=== PATIENT | male | born 1975 | race African-American/Black ===

== ENCOUNTER 2021-03-23 00:19 | Inpatient (IN) | payer SELFPAY ==
[~2021-03-23] VITALS: Ht 167.7 cm; Wt 107.4 kg
--- NOTE | 2021-03-23 00:46 | ED Syncope ---
General Chief Complaint: Neurological Problems Stated Complaint: SEIZURE Source of Information: Patient Exam Limitations: No Limitations History of Present Illness Date Seen by Provider: Mar 23, 2021 Time Seen by Provider: 00:15 Initial Comments Patient presents to the ER by EMS from the local [facility] with chief complaint of a witnessed syncopal episode with seizure-like activity. Patient is postictal to about the time he arrives here. He gives his name and knows that he where he is and states that he has no history of seizures just asthma. No shortness of air or chest pain nausea or recollection of what happened. He says he was here with a friend from [facility]. He gave EMS an address in [place]. No fevers chills nausea vomiting diarrhea constipation or recent illness or sick contacts. EMS reports blood sugar over 300. Patient recalls he does have hypertension and takes 10 mg lisinopril but he has been off it for the past several days. 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 Allergies and Home Medications Allergies Coded Allergies: No Allergy Information Available (Unverified , 03/23/21) No Known Drug Allergies (Unverified , 03/23/21) Patient Home Medication List Home Medication List Reviewed: Yes Review of Systems Constitutional: No chills, No fever EENTM: No ear discharge, No ear pain Respiratory: No cough, No short of breath Cardiovascular: No chest pain, No edema Gastrointestinal: No abdominal pain, No nausea, No vomiting Genitourinary: No discharge, No dysuria Musculoskeletal: No back pain, No joint pain Psychiatric/Neurological: Denies Anxiety, Denies Depressed All Other Systems Reviewed Negative Unless Noted: Yes Past Covhgxf-Ztvuhf-Mybuvu Hx Patient Social History Tobacco Use?: No Use of E-Cig and/or Vaping dev: No Substance use?: No Physical Exam Vital Signs Vital Signs - First Documented 03/23/21 00:19 Temp 36.6 Pulse 116 Resp 14 B/P (MAP) 226/114 (151) O2 Delivery Room Air Capillary Refill : Height, Weight, BMI Height: '" Weight: lbs. oz. kg; BMI Method: General Appearance: No Apparent Distress, WD/WN HEENT: PERRL/EOMI, Pharynx Normal, Moist Mucous Membranes Neck: Full Range of Motion, Normal Inspection Cardiovascular: Regular Rate, Rhythm, No Edema, Normal Peripheral Pulses Respiratory: Lungs Clear, Normal Breath Sounds, No Accessory Muscle Use, No Respiratory Distress Gastrointestinal: Normal Bowel Sounds, Non Tender, Soft Extremities: Normal Capillary Refill, Normal Inspection, No Pedal Edema Neurologic/Psychiatric: Alert, Normal Mood/Affect, glass technologist II-XII Norm as Tested, Other (Oriented to person and place but not time or situation yet. GCS 15) Cranial Nerves: Normal Hearing, Normal Speech, PERRL Motor/Sensory: No Motor Deficit, No Sensory Deficit Skin: Normal Color, Warm/Dry Progress/Results/Core Measures Results/Orders Lab Results Laboratory Tests Test 03/23/21 00:24 03/23/21 00:28 Range/Units Urine Color YELLOW Urine Clarity CLEAR Urine pH 6.0 5-9 Urine Specific [place] 1.020 1.016-1.022 Urine Protein 2+ H NEGATIVE Urine Glucose (UA) 3+ H NEGATIVE Urine Ketones NEGATIVE NEGATIVE Urine Nitrite NEGATIVE NEGATIVE Urine Bilirubin NEGATIVE NEGATIVE Urine Urobilinogen 0.2 < = 1.0 MG/DL Urine Leukocyte Esterase NEGATIVE NEGATIVE Urine RBC (Auto) 2+ H NEGATIVE Urine RBC 5-10 H /HPF Urine WBC 0-2 /HPF Urine Crystals NONE /LPF Urine Bacteria TRACE /HPF Urine Casts PRESENT /LPF Urine Hyaline Casts 0-2 H /LPF Urine Mucus NEGATIVE /LPF Urine Culture Indicated NO Urine Opiates Screen NEGATIVE NEGATIVE Urine Oxycodone Screen NEGATIVE NEGATIVE Urine Methadone Screen NEGATIVE NEGATIVE Urine Propoxyphene Screen NEGATIVE NEGATIVE Urine Barbiturates Screen NEGATIVE NEGATIVE Ur Tricyclic Antidepressants Screen NEGATIVE NEGATIVE Urine Phencyclidine Screen NEGATIVE NEGATIVE Urine Amphetamines Screen NEGATIVE NEGATIVE Urine Methamphetamines Screen NEGATIVE NEGATIVE Urine Benzodiazepines Screen NEGATIVE NEGATIVE Urine Cocaine Screen NEGATIVE NEGATIVE Urine Cannabinoids Screen NEGATIVE NEGATIVE White Blood Count 14.5 H 4.3-11.0 10^3/uL Red Blood Count 5.80 H 4.30-5.52 10^6/uL Hemoglobin 16.4 13.3-17.7 g/dL Hematocrit 50 40-54 % Mean Corpuscular Volume 86 80-99 fL Mean Corpuscular Hemoglobin 28 25-34 pg Mean Corpuscular Hemoglobin Concent 33 32-36 g/dL Red Cell Distribution Width 12.7 10.0-14.5 % Platelet Count 483 H 130-400 10^3/uL Mean Platelet Volume 10.7 9.0-12.2 fL Immature Granulocyte % (Auto) 1 % Neutrophils (%) (Auto) 31 L 42-75 % Lymphocytes (%) (Auto) 56 H 12-44 % Monocytes (%) (Auto) 10 0-12 % Eosinophils (%) (Auto) 3 0-10 % Basophils (%) (Auto) 1 0-10 % Neutrophils # (Auto) 4.5 1.8-7.8 10^3/uL Lymphocytes # (Auto) 8.1 H 1.0-4.0 10^3/uL Monocytes # (Auto) 1.4 H 0.0-1.0 10^3/uL Eosinophils # (Auto) 0.4 H 0.0-0.3 10^3/uL Basophils # (Auto) 0.1 0.0-0.1 10^3/uL Immature Granulocyte # (Auto) 0.1 0.0-0.1 10^3/uL Neutrophils % (Manual) 26 % Lymphocytes % (Manual) 59 % Monocytes % (Manual) 11 % Eosinophils % (Manual) 4 % Band Neutrophils % Sodium Level 138 135-145 MMOL/L Potassium Level 3.3 L 3.6-5.0 MMOL/L Chloride Level 99 98-107 MMOL/L Carbon Dioxide Level 13 L 21-32 MMOL/L Anion Gap 26 H 5-14 MMOL/L Blood Urea Nitrogen 11 7-18 MG/DL Creatinine 1.82 H 0.60-1.30 MG/DL Estimat Glomerular Filtration Rate 49 BUN/Creatinine Ratio 6 Glucose Level 524 *H 70-105 MG/DL Calcium Level 9.3 8.5-10.1 MG/DL Corrected Calcium 9.5 8.5-10.1 MG/DL Magnesium Level 1.9 1.6-2.4 MG/DL Total Bilirubin 0.6 0.1-1.0 MG/DL Aspartate Amino Transf (AST/SGOT) 13 5-34 U/L Alanine Aminotransferase (ALT/SGPT) 17 0-55 U/L Alkaline Phosphatase 91 40-136 U/L Troponin I < 0.028 <0.028 NG/ML C-Reactive Protein High Sensitivity 0.80 H 0.00-0.50 MG/DL B-Type Natriuretic Peptide 21.8 <100.0 PG/ML Total Protein 8.2 6.4-8.2 GM/DL Albumin 3.8 3.2-4.5 GM/DL Beta-Hydroxybutyrate (Chem panel) 0.11 0.00-0.27 MMOL/L Serum Alcohol < 10 <10 MG/DL My Orders Orders - QUINTON KOLB Ct Head/Cervical Spine Wo (03/23/21 00:24) Ed Iv/Invasive Line Start (03/23/21 00:24) Cbc With Automated Diff (03/23/21 00:24) Comprehensive Metabolic Panel (03/23/21:24) Hs C Reactive Protein (03/23/21:24) Chest 1 View, Ap/Pa Only (03/23/21 00:24) Continuous Ekg Monitoring (03/23/21 00:24) Ekg Tracing (03/23/21:24) Alcohol (03/23/21:24) Ua Culture If Indicated (03/23/21 00:24) Drug Screen Stat (Urine) (03/23/21 00:24) BNP (03/23/21 00:55) Troponin I (03/23/21 00:55) Insulin (Regular) Human (Novolin R (Per (03/23/21 01:00) Ed Iv/Invasive Line Start (03/23/21 00:58) Ns Iv 1000 Ml (Sodium Chloride 0.9%) (03/23/21 01:00) Magnesium (03/23/21 00:59) Manual Differential (03/23/21 00:28) Beta Hydroxybutyrate (03/23/21 01:16) Insulin (Regular) Human (Novolin R (Per (03/23/21 01:30) Potassium Cl 10meq/50ml Ivpb (Kcl 10 Meq (03/23/21 01:30) Labetalol Injection (Normodyne Injection (03/23/21 01:30) Medications Given in ED Vital Signs/I&O 03/23/21 00:19 Temp 36.6 Pulse 116 Resp 14 B/P (MAP) 226/114 (151) O2 Delivery Room Air Progress Progress Note #1: Time: 00:53 Progress Note Witnessed syncopal episode. Patient presents with severe hypertension 230/130. Is not having any chest pain. Stroke, hypertensive emergency, vasovagal, seizure, dysrhythmia, intoxication are all possibilities. We will get some labs, urine and CT of the head and C-spine. Unknown if he fell or struck anything but he is not having any pain now. 2 L of fluid. We will address his hyperglycemia with regular insulin Progress Note #2: Time: 01:26 Progress Note Blood sugar over 500 and an elevated anion gap. Beta hydroxybutyrate ordered. 10 of IV insulin and started some potassium. Concern for DKA. Blood pressure has persisted 216/118 so 20 of labetalol for potential hypertensive encephalopathy. Patient still having some short-term memory lapse and cannot member what town he is in but he thinks maybe he is in [facility]. Initial ECG Impression Date: Mar 23, 2021 Initial ECG Impression Time: 01:05 Initial ECG Rate: 99 Initial ECG Rhythm: Normal Sinus Initial ECG Intervals: Normal Initial ECG Impression: Normal Initial ECG Comparisson: No Previous ECG Available Comment Normal sinus rhythm with some nonspecific half of a block of ST elevation in lead V2 with depression in leads aVF, III. Diagnostic Imaging Diagonstic Imaging: Xray Plain Films/CT/US/NM/MRI: chest Comments No acute cardiopulmonary process. [facility]. [place], [place] NAME: JOHN WHITE [facility] REC#: [id number] PT STATUS: ADM IN : 1975 PHYSICIAN: QUINTON KOLB MD ADMIT DATE: 03/23/21/ICU Signed Date of Exam:03/23/21 CHEST 1 VIEW, AP/PA ONLY Indication: Follow-up syncope. Comparison: None. Discussion: Single portable upright view of the chest was obtained. Normal heart size. No consolidation, pleural fluid, or pneumothorax. No osseous abnormality. Impression: 1. Negative portable chest. Dictated by: Dictated on workstation # [id number] Dict: 03/23/21 0706 Trans: 03/23/21 1534 [facility] [id number] Interpreted by: VENKAT CRUZ MD Electronically signed by: VENKAT CRUZ MD 03/23/21 1534 Reviewed: Reviewed by Me Diagonstic Imaging: CT Plain Films/CT/US/NM/MRI: c-spine, head Comments No acute intracranial hemorrhage, mass-effect, midline shift or tumor. No calvarial fracture. No C-spine malalignment or fracture. Osteoarthritis noted. [facility]. [place], [place] NAME: JOHN WHITE [facility] REC#: [id number] PT STATUS: ADM IN : 1975 PHYSICIAN: QUINTON KOLB MD ADMIT DATE: 03/23/21/ICU Signed Date of Exam:03/23/21 CT HEAD/CERVICAL SPINE WO PROCEDURE: CT head and CT cervical spine without contrast. TECHNIQUE: Multiple contiguous axial images were obtained through the brain and cervical spine without the use of intravenous contrast. Sagittal and coronal reformations through the cervical spine were then performed. Auto Exposure Controls were utilized during the CT exam to meet ALARA standards for radiation dose reduction. Indication: Head and neck pain after seizure. Comparison: None. Discussion: Head: No acute intracranial hemorrhage, mass, midline shift, hydrocephalus. The ventricles and sulci are normal size and configuration for age. Mild mucosal thickening within the sinuses. The orbits, mastoid air cells, and calvarium are unremarkable. Cervical spine: Advanced degenerative disc disease noted at C5-C6. Facet arthropathy is present. There is straightening of the normal cervical lordosis which is typically seen with muscle spasm. No acute fracture or subluxation otherwise. Paraspinal soft tissues are unremarkable. Impression: 1. No acute intracranial abnormality identified. 2. Degenerative changes noted within the cervical spine. No acute fracture. 3. Agree with the preliminary report. Dictated by: Dictated on workstation # [id number] Dict: 03/23/21619 Trans: 03/23/21 1525 [facility] [id number] Interpreted by: VENKAT CRUZ MD Electronically signed by: VENKAT CRUZ MD 03/23/21 1525 Reviewed: [facility] Reviewed by Me Departure Communication (Admissions) Time/Spoke to Admitting Phy: 02:20 Discussed the case with Dr. Clifford and she would like a lactate and agrees to admit the patient on insulin drip to the ICU. Impression Primary Impression: Hypertensive encephalopathy Additional Impression: Type 2 diabetes mellitus with hyperosmolar hyperglycemic state (HHS) Disposition: ADMITTED INPATIENT Condition: Stable Admissions Decision to Admit Reason: Admit from ER (General) Decision to Admit/Date: Mar 23, 2021 Time/Decision to Admit Time: 01:45 Departure-Patient Inst. Referrals: NO,LOCAL PHYSICIAN (PCP/Family) Primary Care Physician QUINTON KOLB Mar 23, 2021 00:46
[2021-03-23 00:55] LABS: ALBUMIN 3.8 GM/DL (3.2-4.5); CHLORIDE 99 MMOL/L (98-107); POTASSIUM 3.3 MMOL/L (3.6-5.0); SODIUM 138 MMOL/L (135-145)
[2021-03-23 00:56] LABS: CALCIUM 9.3 MG/DL (8.5-10.1)
[2021-03-23 00:58] LABS: TOTAL PROTEIN 8.2 GM/DL (6.4-8.2)
[2021-03-23] MEDS ORDERED: inSUlin (REGULAR) HUMAN 1 UNIT/0.01 ML (CHARGE PER UNIT) SC ONE (01:00)
[2021-03-23] MEDS ORDERED: NS IV 1000 ML 1,000 ML IV ONE (01:00)
[2021-03-23 01:01] LABS: ALKALINE PHOSPHATASE 91 U/L (40-136); BASOPHILS # (AUTO) 0.1 10^3/uL (0.0-0.1); BASOPHILS % (AUTO) 1 % (0-10); BILIRUBIN,TOTAL 0.6 MG/DL (0.1-1.0); CARBON DIOXIDE 13 MMOL/L (21-32); EOSINOPHILS # (AUTO) 0.4 10^3/uL (0.0-0.3); EOSINOPHILS % (AUTO) 3 % (0-10); HEMATOCRIT 50 % (40-54); HEMOGLOBIN 16.4 g/dL (13.3-17.7); LYMPHOCYTES # (AUTO) 8.1 10^3/uL (1.0-4.0); LYMPHOCYTES % (AUTO) 56 % (12-44); MEAN CORPUSCULAR HEMOGLOBIN 28 pg (25-34); MEAN CORPUSCULAR HGB CONC 33 g/dL (32-36); MEAN CORPUSCULAR VOLUME 86 fL (80-99); MEAN PLATELET VOLUME 10.7 fL (9.0-12.2); MONOCYTES # (AUTO) 1.4 10^3/uL (0.0-1.0); MONOCYTES % (AUTO) 10 % (0-12); NEUTROPHILS # (AUTO) 4.5 10^3/uL (1.8-7.8); NEUTROPHILS % (AUTO) 31 % (42-75); PLATELET COUNT 483 10^3/uL (130-400); WHITE BLOOD COUNT 14.5 10^3/uL (4.3-11.0)
[2021-03-23 01:02] LABS: CREATININE SERUM 1.82 MG/DL (0.60-1.30); GFR ESTIMATED 49
[2021-03-23 01:03] LABS: BUN/CREATININE RATIO 6
[2021-03-23 01:04] LABS: ALANINE AMINOTRANSFERASE 17 U/L (0-55)
[2021-03-23 01:16] LABS: GLUCOSE 524 MG/DL (70-105)
[2021-03-23 01:19] LABS: MAGNESIUM 1.9 MG/DL (1.6-2.4)
[2021-03-23 01:30] LABS: BILIRUBIN,URINE NEGATIVE (NEGATIVE); CLARITY,URINE CLEAR; COLOR,URINE YELLOW; GLUCOSE, URINE (UA) 3+ (NEGATIVE); KETONES,URINE NEGATIVE (NEGATIVE); LEUKOCYTE ESTERASE ,URINE NEGATIVE (NEGATIVE); NITRITE,URINE NEGATIVE (NEGATIVE); PROTEIN,URINE 2+ (NEGATIVE)
[2021-03-23] MEDS ORDERED: LABETALOL HCL 20 MG/4 ML VIAL IV ONE (01:30)
[2021-03-23] MEDS ORDERED: inSUlin (REGULAR) HUMAN 1 UNIT/0.01 ML (CHARGE PER UNIT) IV ONE (01:30)
[2021-03-23] MEDS ORDERED: POTASSIUM CL 10MEQ/50ML IVPB 50 ML IV ONE (01:30)
[2021-03-23 01:39] LABS: EOSINOPHILS % (MANUAL) 4 %; LYMPHOCYTES % (MANUAL) 59 %; MONOCYTES % (MANUAL) 11 %; NEUTROPHILS % (MANUAL) 26 %
[2021-03-23 01:42] LABS: BACTERIA,URINE TRACE /HPF; HYALINE CASTS, URINE 0-2 /LPF; WBC,URINE 0-2 /HPF
[2021-03-23 02:13] LABS: AMPHETAMINE SCREEN, URINE NEGATIVE (NEGATIVE); BARBITURATE SCREEN URINE NEGATIVE (NEGATIVE); BENZODIAZEPINES SCREEN URINE NEGATIVE (NEGATIVE); CANNABINOID SCREEN, URINE NEGATIVE (NEGATIVE); COCAINE SCREEN URINE NEGATIVE (NEGATIVE); METHADONE STAT NEGATIVE (NEGATIVE); METHAMPHETAMINE SCREEN URINE S NEGATIVE (NEGATIVE); OPIATE SCREEN URINE NEGATIVE (NEGATIVE); OXYCODONE STAT NEGATIVE (NEGATIVE); PROPOXYPHENE STAT NEGATIVE (NEGATIVE); TRICYCLIC ANTIDEPRESSANTS SCRE NEGATIVE (NEGATIVE)
--- NOTE | 2021-03-23 03:32 | Tele-ICU Consult ---
History of Present Illness History of Present Illness Date Seen by Provider: Mar 23, 2021 Time Seen by Provider: 03:26 Date of Admission History of Present Illness Patient presents to the ER by EMS from the local [facility] with chief complaint of a witnessed syncopal episode with seizure-like activity. Patient is postictal to about the time he arrives here. He gives his name and knows that he where he is and states that he has no history of seizures just asthma. No shortness of air or chest pain nausea or recollection of what happened. He says he was here with a friend from [facility]. He gave EMS an address in [place]. No fevers chills nausea vomiting diarrhea constipation or recent illness or sick contacts. EMS reports blood sugar over 300. Patient recalls he does have hypertension and takes 10 mg lisinopril but he has been off it for the past several days. 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 In ED he was found to be hyperglycemic: insulin drip was started; He was found to have high AG metabolic acidosis: lactic acid pending/ etoh <10, BHB normal. Allergies and Home Medications Allergies Coded Allergies: No Allergy Information Available (Unverified , 03/23/21) No Known Drug Allergies (Unverified , 03/23/21) Past Medical/Social/Family Hx Patient Social History Tobacco Use?: No Smoking Status: Current Everyday Smoker Use of E-Cig and/or Vaping dev: No Substance use?: No Alcohol Use?: No Current Status Primary Language: Pakistani Preferred Spoken Language: Pakistani Past Medical History asthma, DM, HTN Review of Systems Constitutional: no symptoms reported, other (generalized pain) Respiratory: no symptoms reported Sepsis Event Evaluation Height, Weight, BMI Height: '" Weight: lbs. oz. kg; 29.00 BMI Method: Exam Exam Patient acknowledged, consented, and participated in this virtual visit which was conducted using real time audio/video Vital Signs Date Time Temp Pulse Resp B/P (MAP) Pulse Ox O2 Delivery O2 Flow Rate FiO2 03/23/21 00:19 36.6 116 14 226/114 (151) Room Air I & O 03/23/21 07:00 Intake Total 1250 ml Balance 1250 ml Height & Weight Height: '" Weight: lbs. oz. kg; 29.00 BMI Method: General Appearance: No Apparent Distress, WD/WN HEENT: PERRL/EOMI, Pharynx Normal, Moist Mucous Membranes Neck: Full Range of Motion, Normal Inspection Respiratory: Lungs Clear, Normal Breath Sounds, No Accessory Muscle Use, No Respiratory Distress Cardiovascular: Regular Rate, Rhythm, No Edema, Normal Peripheral Pulses Capillary Refill: Less Than 3 Seconds Extremity: Normal Capillary Refill, Normal Inspection, No Pedal Edema Neurologic/Psychiatric: Alert, Normal Mood/Affect, product safety manager II-XII Norm as Tested, Other (Oriented to person and place but not time or situation yet. GCS 15) Skin: Normal Color, Warm/Dry Results Lab Laboratory Tests 03/23/21 00:28 Assessment/Plan Assessment/Plan 1. AG metabolic acidosis -work up in progress with lactic acid/ abg pending -bmp repeated -we will also ask for osmolality in order to establish a potential osmolar gap / ag metabolic acidosis tylenol and asa level ordered -lactic acidosis my be present and related to seizures 2. Hyperglicemia on Insulin drip 3. Seizures new onset/ related to hyperglycemia mri/ eeg pt was visualized/ labs+ cxray reviewed dw FRANCIA Arboleda MD Mar 23, 2021 03:32
[2021-03-23] MEDS ORDERED: MAGNESIUM 1 GM/100 ML IVPB 100 ML IV ONE (03:45)
[2021-03-23] MEDS ORDERED: ONDANSETRON 4 MG/2 ML (SDV) Z0FRAN IVP PRN (03:45)
[2021-03-23] MEDS ORDERED: LORazepam INJ 2 MG/ML (ATIVAN) VIAL IVP PRN (03:45)
[2021-03-23] MEDS ORDERED: NS IV 1000 ML 1,000 ML IV SCH (03:45)
[2021-03-23] MEDS ORDERED: D5 1/2 NS 1000 ML IV SOLUTION 1,000 ML IV SCH ×2 (03:45→14:45)
[2021-03-23 04:02] VITALS: BP 226/114
[2021-03-23] MEDS ORDERED: RT-ALBUTEROL SULF 2.5 MG/3 ML PRE-MIX VIAL INH PRN (04:15)
[2021-03-23] MEDS: 1/2 NS IV SOLUTION 1,000 ML IV SCH ×2 (05:13→13:48)
[2021-03-23] MEDS: POTASSIUM CL 10MEQ/50ML IVPB 50 ML IV SCH ×2 (05:15→07:32)
[2021-03-23 05:52] LABS: CHLORIDE 104 MMOL/L (98-107); POTASSIUM 3.4 MMOL/L (3.6-5.0); SODIUM 136 MMOL/L (135-145)
[2021-03-23 05:54] LABS: CALCIUM 8.3 MG/DL (8.5-10.1); GLUCOSE 352 MG/DL (70-105)
[2021-03-23 05:55] LABS: CARBON DIOXIDE 22 MMOL/L (21-32)
[2021-03-23 05:58] LABS: CREATININE SERUM 1.04 MG/DL (0.60-1.30); GFR ESTIMATED > 60
[2021-03-23 05:59] LABS: BUN/CREATININE RATIO 12
[2021-03-23 06:00] LABS: SALICYLATE < 5.0 MG/DL (5.0-20.0)
[2021-03-23 06:01] LABS: CREATINE KINASE 299 U/L (30-200)
[2021-03-23 06:18] LABS: ACETAMINOPHEN < 10 UG/ML (10-30)
--- NOTE | 2021-03-23 06:26 | Diagnostic Imaging Report ---
PROCEDURE: CT head and CT cervical spine without contrast. TECHNIQUE: Multiple contiguous axial images were obtained through the brain and cervical spine without the use of intravenous contrast. Sagittal and coronal reformations through the cervical spine were then performed. Auto Exposure Controls were utilized during the CT exam to meet ALARA standards for radiation dose reduction. Indication: Head and neck pain after seizure. Comparison: None. Discussion: Head: No acute intracranial hemorrhage, mass, midline shift, hydrocephalus. The ventricles and sulci are normal size and configuration for age. Mild mucosal thickening within the sinuses. The orbits, mastoid air cells, and calvarium are unremarkable. Cervical spine: Advanced degenerative disc disease noted at C5-C6. Facet arthropathy is present. There is straightening of the normal cervical lordosis which is typically seen with muscle spasm. No acute fracture or subluxation otherwise. Paraspinal soft tissues are unremarkable. Impression: 1. No acute intracranial abnormality identified. 2. Degenerative changes noted within the cervical spine. No acute fracture. 3. Agree with the preliminary report. Dictated by: Dictated on workstation # [id number]
--- NOTE | 2021-03-23 07:09 | Diagnostic Imaging Report ---
Indication: Follow-up syncope. Comparison: None. Discussion: Single portable upright view of the chest was obtained. Normal heart size. No consolidation, pleural fluid, or pneumothorax. No osseous abnormality. Impression: 1. Negative portable chest. Dictated by: Dictated on workstation # [id number]
[2021-03-23 08:24] LABS: BUN/CREATININE RATIO 11; CARBON DIOXIDE 22 MMOL/L (21-32); CHLORIDE 106 MMOL/L (98-107); CREATININE SERUM 0.88 MG/DL (0.60-1.30); GFR ESTIMATED > 60; GLUCOSE 250 MG/DL (70-105); POTASSIUM 3.3 MMOL/L (3.6-5.0); SODIUM 137 MMOL/L (135-145)
--- NOTE | 2021-03-23 08:39 | Tele-ICU Progress Note ---
Progress Note video rounds completed 45 y/o admitted last night [place] in a casino and having a syncopal episode and possible seizure Was found to have elevated AG met acidosis and hyperglycemic Tox screen was negative THis AM PE: standing at bedside to void Pulse: 106 BP: 187/109 Sat 98% Labs: WBC 14.5 Hgb 16 K 3.3 Glu: 20 BUN 9 creat 0.88 Urine tox: negative IMP: HTN on lisinopril normally K low, being replaced Hyperglycemia: on insulin will add lovenox for DVT px No further seizure activity, work up pending Focused Exam Lactate Level 03/23/21 02:42: Lactic Acid Level 2.81*H 03/23/21 05:25: Lactic Acid Level 1.20 Height, Weight, BMI Height: '" Weight: lbs. oz. kg; 38.18 BMI Method: Lactic Acid Level Laboratory Tests Test 03/23/21 05:25 Lactic Acid Level 1.20 MMOL/L (0.50-2.00) TEO HERNANDEZ MD Mar 23, 2021 08:39
[2021-03-23] MEDS ORDERED: lisINopril 10 MG (PRINIVIL) TABLET PO ONE (08:45)
[2021-03-23] MEDS ORDERED: KCL 20 MEQ TAB (K-DUR) PO NR ×2 (08:45→11:00)
[2021-03-23] MEDS ORDERED: lisINopril 10 MG (PRINIVIL) TABLET PO NR (08:45)
[2021-03-23] MEDS: cloNIDine 0.1 MG (CATAPRES) TAB PO SCH ×2 (08:50→21:26)
[2021-03-23] MEDS: ENOXAPARIN 40 MG/0.4 ML (LOVENOX) SYR SC SCH (08:51)
--- NOTE | 2021-03-23 09:04 | History & Physical-Hospitalist ---
History of Present Illness HPI/Chief Complaint Pt is a 45yoAAM who presented to ER due to witnessed seizure like activity. [place] and the last thing he remembers is that he was winning but then he passed out. Bystanders noticed seizure like activity and called EMS. He does not recall any of this. He does state he is feeling better than he did last night. He has no known history of DMII. He was found to be profoundly hyperglycemic with blood sugars in the 500s. He was admitted to the ICU for insulin gtt. He was also found to have a high anion gap metabolic acidosis. Source: patient Date Seen 03/23/21 Time Seen by a Provider: 08:50 Attending Physician Taina Collins MD PCP No,Local Physician Referring Physician Date of Admission Mar 23, 2021 at 01:50 Home Medications & Allergies Home Medications Reviewed patient Home Medication Reconciliation performed by pharmacy medication reconciliations exhaust emissions automotive technician and/or nursing. Patients Allergies have been reviewed. 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) Tobacco Use?: Yes Tobacco type used: Cigarettes Smoking Status: Current Everyday Smoker Use of E-Cig and/or Vaping dev: No Substance use?: No Alcohol Use?: No Pt feels they are or have been: No Immunizations Up To Date First/Initial COVID19 Vaccinat: Not yet, interested in getting it Current Status Advance Directives: No Communicates: Verbally Primary Language: Grenadian Preferred Spoken Language: Grenadian Is interpretation needed?: No Past Medical History Hypertension asthma, DM, HTN Family Medical History Reviewed Nursing Family Hx No Pertinent Family Hx Review of Systems Constitutional: No chills, No fever EENTM: no symptoms reported Respiratory: No phlegm, No short of breath Cardiovascular: No chest pain, No palpitations Gastrointestinal: No abdominal pain, No constipation, No diarrhea, No nausea, No vomiting Genitourinary: no symptoms reported Musculoskeletal: no symptoms reported Skin: no symptoms reported Psychiatric/Neurological: See HPI Physical Exam Physical Exam Vital Signs Vital Signs - First Documented 03/23/21 03/23/21 00:19 04:02 Temp 36.6 Pulse 116 Resp 14 B/P (MAP) 226/114 (151) Pulse Ox 96 O2 Delivery Room Air FiO2 21 Capillary Refill : Less Than 3 Seconds Height, Weight, BMI Height: '" Weight: lbs. oz. kg; 38.18 BMI Method: General Appearance: No Apparent Distress, WD/WN, Obese HEENT: PERRL/EOMI, Moist Mucous Membranes; No Scleral Icterus (L), No Scleral Icterus (R) Neck: Normal Inspection, Supple Respiratory: Lungs Clear, No Accessory Muscle Use, No Respiratory Distress Cardiovascular: Regular Rate, Rhythm, No Murmur Gastrointestinal: Normal Bowel Sounds, Non Tender, Soft Extremity: Normal Capillary Refill, No Calf Tenderness, No Pedal Edema Neurologic/Psychiatric: Alert, Oriented x3, Normal Mood/Affect Skin: Normal Color, Warm/Dry Results Results/Procedures Labs Laboratory Tests 03/23/21 00:28 03/23/21 05:25 03/23/21 08:00 Patient resulted labs reviewed. Imaging: Reviewed Imaging Report Imaging [facility] [place] NAME: JOHN [facility]ITE [facility] REC#: [id number] PT STATUS: ADM IN : 1975 PHYSICIAN: QUINTON KOLB MD ADMIT DATE: 03/23/21/ICU Draft Date of Exam:03/23/21 CT HEAD/CERVICAL SPINE WO PROCEDURE: CT head and CT cervical spine without contrast. TECHNIQUE: Multiple contiguous axial images were obtained through the brain and cervical spine without the use of intravenous contrast. Sagittal and coronal reformations through the cervical spine were then performed. Auto Exposure Controls were utilized during the CT exam to meet ALARA standards for radiation dose reduction. Indication: Head and neck pain after seizure. Comparison: None. Discussion: Head: No acute intracranial hemorrhage, mass, midline shift, hydrocephalus. The ventricles and sulci are normal size and configuration for age. Mild mucosal thickening within the sinuses. The orbits, mastoid air cells, and calvarium are unremarkable. Cervical spine: Advanced degenerative disc disease noted at C5-C6. Facet arthropathy is present. There is straightening of the normal cervical lordosis which is typically seen with muscle spasm. No acute fracture or subluxation otherwise. Paraspinal soft tissues are unremarkable. Impression: 1. No acute intracranial abnormality identified. 2. Degenerative changes noted within the cervical spine. No acute fracture. 3. Agree with the preliminary report. Dictated on workstation # [id number] Dict: 03/23/21619 Trans: 03/23/21624 RAYRAY [id number] Interpreted by: VENKAT CRUZ MD Electronically signed by: [facility]. [place], [place] NAME: JOHN WHITE [facility] REC#: [id number] PT STATUS: ADM IN : 1975 PHYSICIAN: QUINTON KOLB MD ADMIT DATE: 03/23/21/ICU Draft Date of Exam:03/23/21 CHEST 1 VIEW, AP/PA ONLY Indication: Follow-up syncope. Comparison: None. Discussion: Single portable upright view of the chest was obtained. Normal heart size. No consolidation, pleural fluid, or pneumothorax. No osseous abnormality. Impression: 1. Negative portable chest. Dictated on workstation # [id number] Dict: 03/23/21705 Trans: 03/23/21708 CHELSY [id number] Interpreted by: VENKAT CRUZ MD Electronically signed by: Assessment/Plan Admission Diagnosis HHS Admission Status: Inpatient Order (span 2 midnights) Reason for Inpatient Admission: see below Assessment and Plan HHS newly diagnosed DMII HAGMA Currently on insulin gtt a1c ordered DM education prior to DC BHB negative, not DKA Lactic elevated, HAGMA likely due to seizure as now resolved Alcohol, ASA, and tylenol negative as well osm pending Seizure like activity May be due to hyperglycemia Will need to avoid driving for the next 6 months HTN Resume home meds Diagnosis/Problems Diagnosis/Problems (1) Type 2 diabetes mellitus with hyperosmolar hyperglycemic state (HHS) Status: Acute (2) Hypertensive encephalopathy Status: Acute (3) Witnessed seizure-like activity (4) High anion gap metabolic acidosis TAINA COLLINS MD Mar 23, 2021 09:04
[2021-03-23] MEDS ORDERED: hydrALAZINE (APESOLINE) 20 MG/ML VIAL ONE (12:19)
[2021-03-23] MEDS: hydrALAZINE (APESOLINE) 20 MG/ML VIAL IV PRN ×2 (12:22→18:21)
[2021-03-23] MEDS: ACETAMINOPHEN 325 MG TABLET PO PRN ×2 (13:48→19:48)
[2021-03-23 14:30] LABS: BUN/CREATININE RATIO 11; CALCIUM 8.1 MG/DL (8.5-10.1); CARBON DIOXIDE 20 MMOL/L (21-32); CHLORIDE 109 MMOL/L (98-107); CREATININE SERUM 0.81 MG/DL (0.60-1.30); GFR ESTIMATED > 60; GLUCOSE 153 MG/DL (70-105); POTASSIUM 3.5 MMOL/L (3.6-5.0); SODIUM 138 MMOL/L (135-145)
[2021-03-23] MEDS: inSUlin ASPART (NovoLOG) 1 UNIT/0.01 ML (CHARGE PER UNIT) SC SCH ×2 (16:23→21:25)
[2021-03-23] MEDS ORDERED: inSUlin ASPART (NovoLOG) 1 UNIT/0.01 ML (CHARGE PER UNIT) SC SCH (18:00)
[2021-03-24 05:58] LABS: HEMATOCRIT 43 % (40-54); HEMOGLOBIN 14.3 g/dL (13.3-17.7); MEAN CORPUSCULAR HEMOGLOBIN 28 pg (25-34); MEAN CORPUSCULAR HGB CONC 34 g/dL (32-36); MEAN CORPUSCULAR VOLUME 84 fL (80-99); MEAN PLATELET VOLUME 10.2 fL (9.0-12.2); PLATELET COUNT 283 10^3/uL (130-400); WHITE BLOOD COUNT 8.1 10^3/uL (4.3-11.0)
[2021-03-24 06:11] LABS: CHLORIDE 106 MMOL/L (98-107); POTASSIUM 3.9 MMOL/L (3.6-5.0); SODIUM 137 MMOL/L (135-145)
[2021-03-24 06:12] LABS: CALCIUM 8.1 MG/DL (8.5-10.1)
[2021-03-24 06:13] LABS: GLUCOSE 255 MG/DL (70-105)
[2021-03-24 06:14] LABS: CARBON DIOXIDE 21 MMOL/L (21-32)
[2021-03-24 06:16] LABS: CREATININE SERUM 0.91 MG/DL (0.60-1.30); GFR ESTIMATED > 60
[2021-03-24 06:17] LABS: BUN/CREATININE RATIO 10
[2021-03-24 06:19] LABS: MAGNESIUM 1.7 MG/DL (1.6-2.4)
[2021-03-24] MEDS: inSUlin ASPART (NovoLOG) 1 UNIT/0.01 ML (CHARGE PER UNIT) SC SCH ×3 (06:44→21:34)
[2021-03-24] MEDS: MAGNESIUM 1 GM/100 ML IVPB 100 ML IV SCH (06:45)
[2021-03-24] MEDS: KCL 20 MEQ TAB (K-DUR) PO SCH (06:46)
[2021-03-24] MEDS: POTASSIUM CL 10MEQ/50ML IVPB 50 ML IV SCH (06:46)
[2021-03-24] MEDS: ACETAMINOPHEN 325 MG TABLET PO PRN (06:49)
[2021-03-24 08:02] LABS: CHOLESTEROL 182 MG/DL (< 200); HDL CHOLESTEROL 39 MG/DL (40-60); TRIGLYCERIDES 128 MG/DL (<150); VLDL CHOLESTEROL 26 MG/DL (5-40)
[2021-03-24] MEDS ORDERED: metFORMIN 500 MG (GLUCOPHAGE) TAB PO NR (08:30)
[2021-03-24] MEDS: cloNIDine 0.1 MG (CATAPRES) TAB PO SCH ×2 (08:45→21:31)
[2021-03-24] MEDS: lisINopril 40 MG (PRINIVIL) TABLET PO SCH (08:45)
[2021-03-24] MEDS: ENOXAPARIN 40 MG/0.4 ML (LOVENOX) SYR SC SCH (08:45)
--- NOTE | 2021-03-24 11:00 | Progress Note - Hospitalist ---
Subjective HPI/CC On Admission Date Seen by Provider: Mar 24, 2021 Time Seen by Provider: 09:15 Pt is a 45yoAAM who presented to ER due to witnessed seizure like activity. [place] the [place] thing he remembers is that he was winning but then he passed out. Bystanders noticed seizure like activity and called EMS. He does not recall any of this. He does state he is feeling better than he did last night. He has no known history of DMII. He was found to be profoundly hyperglycemic with blood sugars in the 500s. He was admitted to the ICU for insulin gtt. He was also found to have a high anion gap metabolic acidosis. Subjective/Events-last exam He is feeling better today. He has no complaints or concerns. Focused Exam Lactate Level 03/23/21 02:42: Lactic Acid Level 2.81*H 03/23/21 05:25: Lactic Acid Level 1.20 Objective Exam Vital Signs Vital Signs Date Time Temp Pulse Resp B/P (MAP) Pulse Ox O2 Delivery O2 Flow Rate FiO2 03/24/21 10:31 99 Room Air 03/24/21 08:05 36.6 81 16 167/79 (108) 03/23/21 04:02 21 Capillary Refill : Less Than 3 Seconds General Appearance: No Apparent Distress, Obese Respiratory: Lungs Clear, Normal Breath Sounds, No Respiratory Distress Cardiovascular: Regular Rate, Rhythm, No Edema, No Murmur Gastrointestinal: Normal Bowel Sounds, Non Tender, Soft Extremity: Normal Inspection, Non Tender, No Pedal Edema Neurologic/Psychiatric: Alert, Oriented x3, No Motor/Sensory Deficits, Normal Mood/Affect Skin: Normal Color, Warm/Dry Results/Procedures Lab Laboratory Tests 03/23/21 14:05 03/24/21 05:20 Patient resulted labs reviewed. Imaging: Reviewed Imaging Report Assessment/Plan Assessment and Plan Assess & Plan/Chief Complaint T2DM with HHS Metformin Increase Levemir Diabetes education Seizure-like activity Likely due to hyperglycemia Will likely need outpatient follow up with neurology HTN Lisinopril HCTZ Clonidine HLD Lipitor Obesity Metabolic syndrome Clinically significant, no acute management needs DVT prophylaxis: Lovenox Diagnosis/Problems Diagnosis/Problems (1) Type 2 diabetes mellitus with hyperosmolar hyperglycemic state (HHS) Status: Acute (2) Seizure-like activity Status: Acute (3) HTN (hypertension) Status: Acute (4) Obesity Status: Chronic (5) HLD (hyperlipidemia) Status: Acute (6) Metabolic syndrome Status: Acute CARLOS MCDERMOTT MD Mar 24, 2021 11:00
[2021-03-24] MEDS: LORazepam INJ 2 MG/ML (ATIVAN) VIAL IVP PRN (16:02)
[2021-03-24 16:35] VITALS: BP 147/83
[2021-03-24 19:25] VITALS: BP 164/84
[2021-03-25] VITALS (8 sets, daily range): BP systolic 130–181; BP diastolic 64–106
[2021-03-25] MEDS: hydrALAZINE (APESOLINE) 20 MG/ML VIAL IV PRN (00:37)
[2021-03-25] MEDS: ACETAMINOPHEN 325 MG TABLET PO PRN ×3 (01:35→14:46)
[2021-03-25 03:59] LABS: CHLORIDE 103 MMOL/L (98-107); POTASSIUM 3.8 MMOL/L (3.6-5.0); SODIUM 136 MMOL/L (135-145)
[2021-03-25 04:00] LABS: CALCIUM 8.4 MG/DL (8.5-10.1)
[2021-03-25 04:01] LABS: GLUCOSE 263 MG/DL (70-105)
[2021-03-25 04:02] LABS: CARBON DIOXIDE 23 MMOL/L (21-32)
[2021-03-25 04:04] LABS: CREATININE SERUM 1.02 MG/DL (0.60-1.30); GFR ESTIMATED > 60; PHOSPHORUS 3.6 MG/DL (2.3-4.7)
[2021-03-25 04:05] LABS: BUN/CREATININE RATIO 10
[2021-03-25 04:07] LABS: MAGNESIUM 1.6 MG/DL (1.6-2.4)
[2021-03-25] MEDS: KCL 20 MEQ TAB (K-DUR) PO SCH (04:07)
[2021-03-25] MEDS: POTASSIUM CL 10MEQ/50ML IVPB 50 ML IV SCH (04:07)
[2021-03-25] MEDS: MAGNESIUM 1 GM/100 ML IVPB 100 ML IV SCH ×3 (04:11→05:33)
[2021-03-25] MEDS: metFORMIN 500 MG (GLUCOPHAGE) TAB PO SCH (06:12)
[2021-03-25] MEDS: inSUlin ASPART (NovoLOG) 1 UNIT/0.01 ML (CHARGE PER UNIT) SC SCH ×4 (06:24→20:52)
[2021-03-25] MEDS: cloNIDine 0.1 MG (CATAPRES) TAB PO SCH ×2 (08:00→20:58)
[2021-03-25] MEDS: ENOXAPARIN 40 MG/0.4 ML (LOVENOX) SYR SC SCH (08:00)
[2021-03-25] MEDS: lisINopril 40 MG (PRINIVIL) TABLET PO SCH (08:00)
[2021-03-25] MEDS ORDERED: ACET325T38 PO (08:50)
[2021-03-25] MEDS: IBUPROFEN 600 MG (MOTRIN) TAB PO PRN (09:41)
--- NOTE | 2021-03-25 12:05 | Progress Note - Hospitalist ---
Subjective HPI/CC On Admission Date Seen by Provider: Mar 25, 2021 Time Seen by Provider: 09:20 Pt is a 45yoAAM who presented to ER due to witnessed seizure like activity. [place] and the last thing he remembers is that he was winning but then he passed out. Bystanders noticed seizure like activity and called EMS. He does not recall any of this. He does state he is feeling better than he did last night. He has no known history of DMII. He was found to be profoundly hyperglycemic with blood sugars in the 500s. He was admitted to the ICU for insulin gtt. He was also found to have a high anion gap metabolic acidosis. Subjective/Events-last exam He complains of a headache. He had a seizure yesterday. He has no other complaints. Focused Exam Lactate Level 03/23/21 02:42: Lactic Acid Level 2.81*H 03/23/21 05:25: Lactic Acid Level 1.20 Objective Exam Vital Signs Vital Signs Date Time Temp Pulse Resp B/P (MAP) Pulse Ox O2 Delivery O2 Flow Rate FiO2 03/25/21 08:00 37.0 89 20 175/106 (129) 99 Room Air 03/24/21 16:35 2.00 03/23/21 04:02 21 Capillary Refill : Less Than 3 Seconds General Appearance: No Apparent Distress, Obese HEENT: PERRL/EOMI, Pharynx Normal Neck: Normal Inspection, Supple Respiratory: Lungs Clear, Normal Breath Sounds, No Respiratory Distress Cardiovascular: Regular Rate, Rhythm, No Murmur Gastrointestinal: Normal Bowel Sounds, Non Tender, Soft Extremity: Normal Inspection, Non Tender, Pedal Edema Neurologic/Psychiatric: Alert, Oriented x3, No Motor/Sensory Deficits, Normal Mood/Affect Skin: Normal Color, Warm/Dry Results/Procedures Lab Laboratory Tests 03/25/21 02:55 Patient resulted labs reviewed. 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 Started on [employer] work consulted, appreciate assistance T2DM with HHS Continue Metformin Increase Levemir Diabetes education HTN Lisinopril HCTZ Clonidine HLD Lipitor Obesity Metabolic syndrome Clinically significant, no acute management needs DVT prophylaxis: Lovenox Diagnosis/Problems Diagnosis/Problems (1) Seizures Status: Acute (2) Type 2 diabetes mellitus with hyperosmolar hyperglycemic state (HHS) Status: Acute (3) HTN (hypertension) Status: Acute (4) Obesity Status: Chronic (5) HLD (hyperlipidemia) Status: Acute (6) Metabolic syndrome Status: Acute CARLOS MCDERMOTT MD Mar 25, 2021 12:05
[2021-03-25] MEDS: LORazepam INJ 2 MG/ML (ATIVAN) VIAL IVP PRN (17:29)
[2021-03-25] MEDS ORDERED: clonazePAM 0.5 MG (KlonoPIN) TAB PO ONE (18:00)
[2021-03-25] MEDS: clonazePAM 0.5 MG (KlonoPIN) TAB PO SCH (20:59)
[2021-03-26 03:43] VITALS: BP 146/92
[2021-03-26 05:09] LABS: CHLORIDE 101 MMOL/L (98-107); POTASSIUM 3.7 MMOL/L (3.6-5.0); SODIUM 135 MMOL/L (135-145)
[2021-03-26 05:10] LABS: CALCIUM 8.8 MG/DL (8.5-10.1)
[2021-03-26 05:11] LABS: GLUCOSE 195 MG/DL (70-105)
[2021-03-26 05:12] LABS: CARBON DIOXIDE 26 MMOL/L (21-32)
[2021-03-26 05:15] LABS: GFR ESTIMATED > 60; PHOSPHORUS 4.1 MG/DL (2.3-4.7)
[2021-03-26 05:16] LABS: BUN/CREATININE RATIO 13
[2021-03-26 05:17] LABS: MAGNESIUM 1.7 MG/DL (1.6-2.4)
[2021-03-26] MEDS: inSUlin ASPART (NovoLOG) 1 UNIT/0.01 ML (CHARGE PER UNIT) SC SCH ×6 (05:39→20:23)
[2021-03-26] MEDS: POTASSIUM CL 10MEQ/50ML IVPB 50 ML IV SCH (05:42)
[2021-03-26] MEDS: KCL 20 MEQ TAB (K-DUR) PO SCH (05:42)
[2021-03-26] MEDS: MAGNESIUM 1 GM/100 ML IVPB 100 ML IV SCH ×3 (05:42→07:07)
[2021-03-26] MEDS: metFORMIN 500 MG (GLUCOPHAGE) TAB PO SCH (06:07)
[2021-03-26] MEDS: IBUPROFEN 600 MG (MOTRIN) TAB PO PRN (08:24)
[2021-03-26] MEDS: cloNIDine 0.1 MG (CATAPRES) TAB PO SCH ×2 (08:24→20:23)
[2021-03-26] MEDS: lisINopril 40 MG (PRINIVIL) TABLET PO SCH (08:24)
[2021-03-26] MEDS: ENOXAPARIN 40 MG/0.4 ML (LOVENOX) SYR SC SCH (08:25)
[2021-03-26] MEDS: clonazePAM 0.5 MG (KlonoPIN) TAB PO SCH ×3 (08:25→23:05)
[2021-03-26] MEDS: amLODIPine 10 MG (NORVASC) TAB PO SCH (08:25)
[2021-03-26 08:30] VITALS: BP 159/103
[2021-03-26 12:30] VITALS: BP 127/68
[2021-03-26 16:00] VITALS: BP 140/65
--- NOTE | 2021-03-26 16:43 | Progress Note - Hospitalist ---
Subjective HPI/CC On Admission Date Seen by Provider: Mar 26, 2021 Time Seen by Provider: 09:45 Pt is a 45yoAAM who presented to ER due to witnessed seizure like activity. [place] and the last thing he remembers is that he was winning but then he passed out. Bystanders noticed seizure like activity and called EMS. He does not recall any of this. He does state he is feeling better than he did last night. He has no known history of DMII. He was found to be profoundly hyperglycemic with blood sugars in the 500s. He was admitted to the ICU for insulin gtt. He was also found to have a high anion gap metabolic acidosis. Subjective/Events-last exam He had two more seizures yesterday. He does not remember them. He is tired this morning. He has no complaints or concerns. Objective Exam Vital Signs Vital Signs Date Time Temp Pulse Resp B/P (MAP) Pulse Ox O2 Delivery O2 Flow Rate FiO2 03/26/21 16:00 36.8 91 18 140/65 (90) 95 Room Air 03/24/21 16:35 2.00 03/23/21 04:02 21 Capillary Refill : Less Than 3 Seconds General Appearance: No Apparent Distress, Obese Respiratory: Lungs Clear, Normal Breath Sounds, No Respiratory Distress Cardiovascular: Regular Rate, Rhythm, No Edema, No Murmur Gastrointestinal: Normal Bowel Sounds, Non Tender, Soft Extremity: Normal Inspection, Non Tender, No Pedal Edema Neurologic/Psychiatric: Alert, No Motor/Sensory Deficits, Normal Mood/Affect Skin: Normal Color, Warm/Dry Results/Procedures Lab Laboratory Tests 03/26/21 04:45 Patient resulted labs reviewed. 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 Continue Keppra Started on [employer] Social work consulted, appreciate assistance T2DM with HHS Continue Metformin Continue Levemir Add mealtime Novolog Sliding scale insulin Diabetes education HTN Lisinopril HCTZ Add Amlodipine Clonidine HLD Lipitor Obesity Metabolic syndrome Clinically significant, no acute management needs DVT prophylaxis: Lovenox Diagnosis/Problems Diagnosis/Problems (1) Seizures Status: Acute (2) Type 2 diabetes mellitus with hyperosmolar hyperglycemic state (HHS) Status: Acute (3) HTN (hypertension) Status: Acute (4) Obesity Status: Chronic (5) HLD (hyperlipidemia) Status: Acute (6) Metabolic syndrome Status: Acute CARLOS MCDEMROTT MD Mar 26, 2021 16:43
[2021-03-26] MEDS ORDERED: MELATONIN 10 MG TABLET PO PRN (19:00)
[2021-03-26] MEDS ORDERED: diphenhydrAMINE 25 MG TAB (BENADRYL) PO PRN (19:00)
[2021-03-26] MEDS ORDERED: MELATONIN 3 MG TABLET PO PRN (19:00)
[2021-03-26 19:43] VITALS: BP 168/84
[2021-03-27 00:20] VITALS: BP_SYST 106; BP_SYST 132; BP_DIAS 66; BP_DIAS 78
[2021-03-27] MEDS: ACETAMINOPHEN 325 MG TABLET PO PRN (03:52)
[2021-03-27 04:11] VITALS: BP 172/97
[2021-03-27 05:59] LABS: CHLORIDE 101 MMOL/L (98-107); POTASSIUM 3.9 MMOL/L (3.6-5.0); SODIUM 136 MMOL/L (135-145)
[2021-03-27 06:00] LABS: CALCIUM 8.8 MG/DL (8.5-10.1)
[2021-03-27 06:01] LABS: GLUCOSE 304 MG/DL (70-105)
[2021-03-27 06:02] LABS: CARBON DIOXIDE 22 MMOL/L (21-32)
[2021-03-27 06:04] LABS: PHOSPHORUS 3.8 MG/DL (2.3-4.7)
[2021-03-27 06:05] LABS: CREATININE SERUM 1.03 MG/DL (0.60-1.30); GFR ESTIMATED > 60
[2021-03-27 06:06] LABS: BUN/CREATININE RATIO 16
[2021-03-27 06:07] LABS: MAGNESIUM 1.6 MG/DL (1.6-2.4)
[2021-03-27] MEDS: metFORMIN 500 MG (GLUCOPHAGE) TAB PO SCH (06:16)
[2021-03-27] MEDS: inSUlin ASPART (NovoLOG) 1 UNIT/0.01 ML (CHARGE PER UNIT) SC SCH ×7 (06:17→20:54)
[2021-03-27] MEDS: POTASSIUM CL 10MEQ/50ML IVPB 50 ML IV SCH (06:22)
[2021-03-27] MEDS: KCL 20 MEQ TAB (K-DUR) PO SCH (06:22)
[2021-03-27] MEDS: MAGNESIUM 1 GM/100 ML IVPB 100 ML IV SCH ×3 (06:24→07:50)
[2021-03-27 08:00] VITALS: BP 166/106
[2021-03-27] MEDS: amLODIPine 10 MG (NORVASC) TAB PO SCH (10:50)
[2021-03-27] MEDS: ENOXAPARIN 40 MG/0.4 ML (LOVENOX) SYR SC SCH (10:51)
--- NOTE | 2021-03-27 11:04 | Progress Note - Hospitalist ---
SOCORRO RICK MED STUDENT 03/27/21 1104: Subjective HPI/CC On Admission Date Seen by Provider: Mar 27, 2021 Time Seen by Provider: 08:20 Pt is a 45yoAAM who presented to ER due to witnessed seizure like activity. [place] and the last thing he remembers is that he was winning but then he passed out. Bystanders noticed seizure like activity and called EMS. He does not recall any of this. He does state he is feeling better than he did last night. He has no known history of DMII. He was found to be profoundly hyperglycemic with blood sugars in the 500s. He was admitted to the ICU for insulin gtt. He was also found to have a high anion gap metabolic acidosis. Subjective/Events-last exam Pt has not had any seizures since yesterday but nurse did find him asleep on the toilet, so Klonopin was held. He denies any headaches but notes some coordination difficulty when trying to type in his phone. No other complaints. BP elevated this morning at 166/106. Objective Exam Vital Signs Vital Signs Date Time Temp Pulse Resp B/P (MAP) Pulse Ox O2 Delivery O2 Flow Rate FiO2 03/27/21 08:00 36.4 90 20 166/106 (126) 98 Room Air 03/24/21 16:35 2.00 03/23/21 04:02 21 Capillary Refill : Less Than 3 Seconds General Appearance: No Apparent Distress, WD/WN HEENT: PERRL/EOMI, Moist Mucous Membranes Neck: Normal Inspection Respiratory: Lungs Clear, Normal Breath Sounds, No Accessory Muscle Use, No Respiratory Distress Cardiovascular: Regular Rate, Rhythm, No Edema Gastrointestinal: Non Tender Extremity: Normal Inspection, No Calf Tenderness Neurologic/Psychiatric: Alert, Oriented x3, No Motor/Sensory Deficits, Normal Mood/Affect, Other ([id number] testing was delayed) Skin: Normal Color, Warm/Dry Results/Procedures Lab Laboratory Tests 03/27/21 05:30 Patient resulted labs reviewed. 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 Perform MRI today. Will need neurology follow up. Adjusting insulin and BP meds as needed. Diagnosis/Problems Diagnosis/Problems (1) Seizures Status: Acute (2) Type 2 diabetes mellitus with hyperosmolar hyperglycemic state (HHS) Status: Acute (3) HTN (hypertension) Status: Acute (4) HLD (hyperlipidemia) Status: Acute (5) Obesity Status: Chronic (6) Metabolic syndrome Status: Acute Supervisory-Addendum Brief Verification & Attestation Participated in pt care: history, MDM, physical Personally performed: exam, history, MDM, supervision of care Care discussed with: Medical Student Procedures: n/a Results interpretation: Verified all documentation A medical student performed and documented this service. I then reviewed and verified all information documented by the medical student and made modifications to such information, when appropriate. I personally performed a history, physical exam, and performed medical decision making. SOCORRO RICK MED STUDENT Mar 27, 2021 11:04 CARLOS MCDERMOTT MD Mar 27, 2021 13:56
[2021-03-27] MEDS: cloNIDine 0.1 MG (CATAPRES) TAB PO SCH ×2 (11:11→20:16)
[2021-03-27] MEDS: lisINopril 40 MG (PRINIVIL) TABLET PO SCH (11:25)
[2021-03-27] MEDS: clonazePAM 0.5 MG (KlonoPIN) TAB PO SCH ×3 (11:47→20:16)
[2021-03-27 12:00] VITALS: BP 167/98
[2021-03-27 16:00] VITALS: BP 151/97
[2021-03-27] MEDS ORDERED: GADOBUTROL 10 MMOL/10 ML (GADAVIST) VIAL IV ONE (16:15)
--- NOTE | 2021-03-27 17:24 | Diagnostic Imaging Report ---
PROCEDURE: MR imaging of the brain without contrast. TECHNIQUE: Multiplanar, multisequence MR imaging of the brain was performed without contrast. INDICATION: Seizures. COMPARISON made with a CT of the head from 03/23/2021. FINDINGS: The patient was unwilling to complete the entirety of the examination. No contrast was administered. The diffusion series demonstrates high diffusion signal intensity associated with the cortex of several of the gyri within the anterior and superior right frontal lobe. There is associated T2 hyperintensity demonstrated on FLAIR imaging. There are low ADC values. Some of the regions of diffusion restriction demonstrate significant focality and these are favored to be reflective of small regions of cortical ischemia rather than diffusion signal changes related to active seizure. There are no findings of acute intracranial hemorrhage. There is no intracranial mass effect or shift. There is no hydrocephalus. There is no abnormal extra-axial collection. The basilar cisterns appear patent. The posterior fossa appears unremarkable. The sellar and pineal regions are unremarkable. The mastoid air cells appear clear. There is moderate scattered mucosal thickening within the ethmoids. The orbital contents are unremarkable. The major expected intracranial arterial and dural venous sinus flow voids appear preserved. IMPRESSION: 1. Small regions of cortical diffusion hyperintensity with low ADC values and T2 hyperintensity involving several of the gyri within the superior and anterior right frontal lobe. Given the focality of the degree of diffusion signal abnormality, this is favored to reflect small regions of cortical ischemia rather than simply diffusion signal changes related to seizure activity. Given the T2 hyperintensity throughout this region, these findings appear subacute. 2. There is no mass effect or evidence of hydrocephalus. 3. No findings of intracranial hemorrhage. These findings were discussed with Dr. Arellano at time of dictation. Dictated by: Dictated on workstation # [id number]
[2021-03-27] MEDS ORDERED: ASPIRIN E.C. 81 MG (ECOTRIN) TAB PO NR (18:30)
[2021-03-27 19:30] VITALS: BP 149/87
[2021-03-28 00:21] VITALS: BP 137/91
[2021-03-28] MEDS: ACETAMINOPHEN 325 MG TABLET PO PRN (02:28)
[2021-03-28 04:05] VITALS: BP 138/87
[2021-03-28 04:31] LABS: CHLORIDE 102 MMOL/L (98-107); SODIUM 136 MMOL/L (135-145)
[2021-03-28 04:33] LABS: CALCIUM 9.1 MG/DL (8.5-10.1); GLUCOSE 165 MG/DL (70-105)
[2021-03-28 04:35] LABS: CARBON DIOXIDE 24 MMOL/L (21-32)
[2021-03-28 04:37] LABS: CREATININE SERUM 0.92 MG/DL (0.60-1.30); GFR ESTIMATED > 60; PHOSPHORUS 4.9 MG/DL (2.3-4.7)
[2021-03-28 04:38] LABS: BUN/CREATININE RATIO 17
[2021-03-28 04:39] LABS: MAGNESIUM 1.5 MG/DL (1.6-2.4)
[2021-03-28] MEDS: POTASSIUM CL 10MEQ/50ML IVPB 50 ML IV SCH (04:41)
[2021-03-28] MEDS: MAGNESIUM 1 GM/100 ML IVPB 100 ML IV SCH ×2 (04:42→04:59)
[2021-03-28] MEDS: KCL 20 MEQ TAB (K-DUR) PO SCH (04:42)
[2021-03-28] MEDS: inSUlin ASPART (NovoLOG) 1 UNIT/0.01 ML (CHARGE PER UNIT) SC SCH ×4 (04:43→11:49)
[2021-03-28] MEDS: metFORMIN 500 MG (GLUCOPHAGE) TAB PO SCH (06:03)
[2021-03-28 08:20] VITALS: BP 145/92
[2021-03-28] MEDS: lisINopril 40 MG (PRINIVIL) TABLET PO SCH (08:27)
[2021-03-28] MEDS: amLODIPine 10 MG (NORVASC) TAB PO SCH (08:27)
[2021-03-28] MEDS: cloNIDine 0.1 MG (CATAPRES) TAB PO SCH (08:28)
[2021-03-28] MEDS: ENOXAPARIN 40 MG/0.4 ML (LOVENOX) SYR SC SCH (08:28)
[2021-03-28] MEDS: clonazePAM 0.5 MG (KlonoPIN) TAB PO SCH ×2 (08:30→13:03)
[2021-03-28] MEDS ORDERED: ASPIRIN E.C. 81 MG (ECOTRIN) TAB PO SCH (09:00)
--- NOTE | 2021-03-28 11:16 | Progress Note - Hospitalist ---
Subjective HPI/CC On Admission Date Seen by Provider: Mar 28, 2021 Time Seen by Provider: 08:15 Pt is a 45yoAAM who presented to ER due to witnessed seizure like activity. [place] and the last thing he remembers is that he was winning but then he passed out. Bystanders noticed seizure like activity and called EMS. He does not recall any of this. He does state he is feeling better than he did last night. He has no known history of DMII. He was found to be profoundly hyperglycemic with blood sugars in the 500s. He was admitted to the ICU for insulin gtt. He was also found to have a high anion gap metabolic acidosis. Subjective/Events-last exam Pt doing well today, no complaints. BP better controlled. MRI showed small regions of cortical ischemia. Social work is working to get pt transportation back home to [place]. Objective Exam Vital Signs Vital Signs Date Time Temp Pulse Resp B/P (MAP) Pulse Ox O2 Delivery O2 Flow Rate FiO2 03/28/21 08:20 36.4 87 16 145/92 (109) 100 Room Air 03/24/21 16:35 2.00 03/23/21 04:02 21 Capillary Refill : Less Than 3 Seconds General Appearance: No Apparent Distress, WD/WN HEENT: PERRL/EOMI Respiratory: Normal Breath Sounds, No Accessory Muscle Use, No Respiratory Distress Cardiovascular: Regular Rate, Rhythm, No Edema Gastrointestinal: Non Tender, Soft Extremity: Normal Inspection, No Calf Tenderness Neurologic/Psychiatric: Alert, Oriented x3, No Motor/Sensory Deficits Skin: Normal Color, Warm/Dry Results/Procedures Lab Laboratory Tests 03/28/21 04:05 Patient resulted labs reviewed. 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
[2021-03-28 11:40] VITALS: BP 102/66
[2021-03-28] MEDS ORDERED: ATOR40TA PO (12:23)
[2021-03-28] MEDS ORDERED: ASPI-1238 PO (12:23)
[2021-03-28] MEDS ORDERED: CLON0.5T4 PO (12:23)
[2021-03-28] MEDS ORDERED: METF-397 PO (12:23)
[2021-03-28] MEDS ORDERED: LEVE500T6 PO (12:23)
[2021-03-28] MEDS ORDERED: CARV12.53 PO (12:23)
[2021-03-28] MEDS ORDERED: AMLO-251 PO (12:23)
[2021-03-28] MEDS ORDERED: LISI40TA9 PO (12:23)
[2021-03-28] MEDS ORDERED: INSU100I29 SQ (12:23)
[2021-03-28] MEDS ORDERED: HYDR25TA4 PO (12:23)
--- NOTE | 2021-03-28 12:51 | Discharge Summary ---
Discharge Summary Hospital Course Was the Problem List Reviewed?: Yes Problems/Dx: (1) Seizures Status: Acute (2) Type 2 diabetes mellitus with hyperosmolar hyperglycemic state (HHS) Status: Acute (3) HTN (hypertension) Status: Acute Qualifiers: Qualified Codes: I10 - Essential (primary) hypertension (4) HLD (hyperlipidemia) Status: Acute (5) Obesity Status: Chronic (6) Metabolic syndrome Status: Acute (7) Stroke Status: Acute Hospital Course Date of Admission: Mar 23, 2021 at 01:50 Admission Diagnosis: Hypertensive urgency Family Physician/Provider: Silvia,Local Physician Date of Discharge: 03/28/21 Discharge Diagnosis: Hypertensive emergency with stroke, Type 2 diabetes mellitus with hyperglycemic hyperosmolar state, seizures Hospital Course: Gypsy Jay is a 45-year-old male who presented with seizure-like activity. He was found to have significantly elevated blood pressure as well as blood sugar. He was started on medications and his blood pressure improved. He was started on amlodipine, lisinopril, hydrochlorothiazide, and Coreg. A CT on arrival showed no acute abnormalities. Further work-up with an MRI showed 2 small areas of ischemic stroke consistent with his history of hypertension. He was started on aspirin and Lipitor. He was started on insulin and his blood sugars improved. He was also started on Metformin. He had 2 subsequent seizures after admission. He was started on Keppra and then Klonopin. He did not have any subsequent seizures for 48 hours prior to discharge. He was instructed not to drive until he is cleared by a neurologist. A letter of concern was sent to [place] [employer]. 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 He was adamantly discouraged from doing this. He was set up with a taxi to take him to the pharmacy and then to his hotel. He said that he would call his [employer] company and they would arrange a ride to get him home. He must set up a follow-up with a primary care physician and neurologist in [place]. He was discharged in stable condition. Labs and Pending Lab Test: Laboratory Tests 03/27/21 16:00: Glucometer 170H 03/27/21 20:43: Glucometer 203H 03/28/21 04:05: Sodium Level 136, Potassium Level 4.0, Chloride Level 102, Carbon Dioxide Level 24, Anion Gap 10, Blood Urea Nitrogen 16, Creatinine 0.92, Estimat Glomerular Fi ltration Rate > 60, BUN/Creatinine Ratio 17, Glucose Level 165H, Calcium Level 9.1, Phosphorus Level 4.9H, Magnesium Level 1.5L 03/28/21 11:44: Glucometer 238H Microbiology 03/23/21 MRSA Screen - Final, Complete MRSA not isolated Home Meds Active Levemir Flextouch (Insulin Detemir) 100 Unit/1 Ml Insuln.pen 25 Unit SQ DAILY 30 Days Metformin HCl 500 Mg Tablet 500 Mg PO DAILY@07 30 Days Hydrochlorothiazide 25 Mg Tablet 25 Mg PO DAILY 30 Days Levetiracetam 500 Mg Tablet 1,000 Mg PO BID 30 Days Clonazepam 0.5 Mg Tablet 0.25 Mg PO TID 30 Days Aspirin EC (Aspirin) 81 Mg Tablet.dr 81 Mg PO DAILY 30 Days Lisinopril 40 Mg Tablet 40 Mg PO DAILY 30 Days Amlodipine Besylate 10 Mg Tablet 10 Mg PO DAILY 30 Days Carvedilol 12.5 Mg Tablet 12.5 Mg PO BID 30 Days Lipitor (Atorvastatin Calcium) 40 Mg Tablet 40 Mg PO HS 30 Days Reported Tylenol (Acetaminophen) 325 Mg Tablet 650 Mg PO Q6H PRN TAKES 2 (325MG) TABLETS Assessment/Pt Instructions Take medications as prescribed. You are being started on Keppra and Klonopin for seizures. DO NOT DRIVE until cleared by a neurologist. You will need to set up an appointment with the neurologist once he returned home. He will also need to get established with a primary care physician. You are also being started on amlodipine, lisinopril, hydrochlorothiazide, and Coreg for your blood pressure. You are being started on aspirin and Lipitor for stroke. You are being started on Metformin and Levemir for diabetes. Return with seizures, chest pain, shortness of breath, or if you feel like you are getting worse. Discharge Planning: >30 minutes discharge planning Discharge Instructions Discharge Diet: ADA Diet Activity as Tolerated: Yes Discharge Physical Examination Vital Signs Vital Signs Date Time Temp Pulse Resp B/P (MAP) Pulse Ox O2 Delivery O2 Flow Rate FiO2 03/28/21 11:40 36.4 84 14 102/66 (78) 98 Room Air 03/24/21 16:35 2.00 03/23/21 04:02 21 General Appearance: No Apparent Distress, Obese Respiratory: Lungs Clear, Normal Breath Sounds, No Respiratory Distress Cardiovascular: Regular Rate, Rhythm, No Edema, No Murmur Gastrointestinal: Normal Bowel Sounds, Non Tender, Soft Extremity: Normal Inspection, Non Tender, No Pedal Edema Skin: Normal Color, Warm/Dry Neurologic/Psychiatric: Alert, Oriented x3, No Motor/Sensory Deficits, Normal Mood/Affect Allergies: Coded Allergies: No Allergy Information Available (Unverified , 03/23/21) No Known Drug Allergies (Unverified , 03/23/21) Discharge Summary Date of Admission Mar 23, 2021 at 01:50 Date of Discharge Discharge Date: Mar 28, 2021 Discharge Time: 12:50 Admission Diagnosis HHS Discharge Diagnosis Hypertensive emergency, T2DM with HHS, seizures (1) Seizures Status: Acute (2) Type 2 diabetes mellitus with hyperosmolar hyperglycemic state (HHS) Status: Acute (3) HTN (hypertension) Status: Acute Qualifiers: Qualified Codes: I10 - Essential (primary) hypertension (4) HLD (hyperlipidemia) Status: Acute (5) Obesity Status: Chronic (6) Metabolic syndrome Status: Acute (7) Stroke Status: Acute CARLOS MCDERMOTT MD Mar 28, 2021 12:43
== END 2021-03-28 13:29 | disposition home or self-care (01) | DRG 64 ==
LOC: ER 00:21 → ICU 01:50 → 4TH 19:12
PROVIDERS: ADMIT Family Medicine; ATTEND Internal Medicine
DX: I63.9 Cerebral infarction, unspecified (principal); E11.00 Type 2 diabetes mellitus with hyperosmolarity without nonketotic hyperglycemic-hyperosmolar coma (NKHHC); I67.4 Hypertensive encephalopathy; E87.2 Acidosis; E88.81 Metabolic syndrome and other insulin resistance; I10 Essential (primary) hypertension; R56.9 Unspecified convulsions; F17.210 Nicotine dependence, cigarettes, uncomplicated; J45.909 Unspecified asthma, uncomplicated; E78.5 Hyperlipidemia, unspecified; E66.9 Obesity, unspecified; Z79.4 Long term (current) use of insulin; Z68.38 Body mass index [BMI] 38.0-38.9, adult
CPT/HCPCS: 36415; 70450; 70551; 71045; 72125; 80048; 80053; 80061; 80306; 80320; 80329; 81000; 82010; 82550; 82947; 83036; 83605; 83735; 83880; 83930; 84100; 84484; 85007; 85027; 86141; 87081; 93005